=== PATIENT | female | born 1935 | race Caucasian/White ===

== ENCOUNTER → 2020-11-14 | Outpatient (CLI) | payer MEDICARE, OTHER ==
[~2020-11-14] MED LIST: AMLO10 PO; Aspir 8181 MG PO; LEVE500 PO; LISI5 PO; OMEP20ER PO; SENN187 PO; SERT100 PO; VIT1CAPS12 PO; VITAMIN D31000 UNIT PO
[2020-11-14 09:43] LABS: Appearance, Urine Clear (Clear); Bilirubin, Urine Neg (Neg); Blood, Urine Neg (Neg); Color, Urine Yellow (P-Yellow); Glucose Qualitative, Urine Neg (Neg); Ketones, Urine Neg (Neg); Leukocyte Esterase, Urine Neg (Neg); Nitrite, Urine Neg (Neg); Protein, Urine Neg (Neg); Specific Gravity, Urine 1.015 (1.003-1.022); Urobilinogen, Urine NORM (Normal)
== END | disposition home or self-care (01) ==
LOC: LAB 07:05 → LAB SHORT 07:05 → EDSTATUS 11-13 15:50 → LAB FUT 11-13 15:50
PROVIDERS: Internal Medicine
DX: R35.0 Frequency of micturition (principal)
CPT/HCPCS: 81003

== ENCOUNTER 2021-01-11 13:58 | Observation (INO) | payer OTHER, MEDICARE ==
[~2021-01-11] VITALS: Ht 175.3 cm; Wt 86.2 kg
[2021-01-11 14:48] LABS: Source, Urine Catheter
[2021-01-11 14:51] LABS: Bilirubin, Urine Neg (Neg); Blood, Urine 1+ (Neg); Glucose Qualitative, Urine 4+ (Neg); Ketones, Urine Neg (Neg); Leukocyte Esterase, Urine Neg (Neg); Nitrite, Urine Neg (Neg); Protein, Urine 1+ (Neg); Urobilinogen, Urine NORM (Normal)
[2021-01-11 15:02] LABS: Appearance, Urine Clear (Clear); Color, Urine Yellow (P-Yellow)
[2021-01-11 15:03] LABS: Bacteria Rare /hpf; Mucus Light (0-Heavy); Red Blood Cells, Urine 0-2 /hpf (0-2); Squamous Epithelial Cells Rare /hpf (Few); White Blood Cells, Urine 0-2 /hpf (0-5)
[2021-01-11 15:17] LABS: Alanine Aminotransfer (ALT/SGP 38 U/L (12-78); Albumin, Blood 3.9 g/dL (3.4-5.0); Albumin/Globulin Ratio 0.9 (0.8-1.8); Alk Phos 117 U/L (50-136); Anion Gap 6 mmol/L (6-16); Aspartate Aminotrans (AST/SGOT 62 U/L (12-37); Bilirubin, Total 0.9 mg/dL (0.1-1.0); Blood Urea Nitrogen 15 mg/dL (8-24); Bun/Creatinine Ratio 30.7 (12.0-20.0); CO2, Blood 28 mmol/L (21-32); Calcium, Blood 9.3 mg/dL (8.5-10.1); Chloride, Blood 102 mmol/L (98-108); Creatinine, Blood 0.49 mg/dL (0.40-1.00); Globulin, Blood 4.3 g/dL (2.2-4.0); Glomerular Filtration Rate >60 (60-); Glucose, Blood 166 mg/dL (70-99); Magnesium, Blood 2.1 mg/dL (1.6-2.4); Potassium, Blood 3.6 mmol/L (3.5-5.5); Sodium, Blood 136 mmol/L (136-145); Total Protein, Blood 8.2 g/dL (6.4-8.2); Troponin I <0.015 ng/mL (0.000-0.040)
[2021-01-11 15:19] LABS: CPK Creatine Kinase 1552 U/L (26-193)
[2021-01-11 15:27] LABS: BASOPHILS ABSOLUTE AUTO 0.02 K/mm3 (0.00-0.23); BASOPHILS PERCENT AUTO 0 % (0-2); EOSINOPHILS ABSOLUTE AUTO 0.01 K/mm3 (0.00-0.68); EOSINOPHILS PERCENT AUTO 0 % (0-6); Hematocrit 40.1 % (33.0-51.0); Hemoglobin 13.2 g/dL (11.5-16.0); IMMATURE GRAN ABSOLUTE AUTO 0.04 K/mm3 (0.00-0.10); IMMATURE GRAN PERCENT AUTO 0 % (0-1); LYMPHOCYTES ABSOLUTE AUTO 0.62 K/mm3 (0.84-5.20); LYMPHOCYTES PERCENT AUTO 6 % (21-46); MONOCYTES PERCENT AUTO 10 % (4-13); Mean Corpuscular HGB 27.5 pg (26.0-34.0); Mean Corpuscular HGB Conc 32.9 g/dL (31.5-36.5); Mean Corpuscular Volume 84 fL (80-100); Mean Platelet Volume 10.6 fL (9.1-12.4); NEUTROPHILS ABSOLUTE AUTO 8.38 K/mm3 (1.96-9.15); NEUTROPHILS PERCENT AUTO 83 % (41-73); Platelet Count 150 K/mm3 (150-400); RDW Coefficient Variation 13.7 % (11.7-14.2); RDW Standard Deviation 42.1 fL (35.1-46.3); White Blood Cell Count 10.07 K/mm3 (4.00-11.30)
[2021-01-11 15:33] LABS: Creatine Kinase MB 43.3 ng/mL (0.0-3.6)
[2021-01-11 15:34] LABS: Creatine Kinase MB Index 2.8 (0.0-4.0)
[2021-01-11] MEDS ORDERED: Aspir 8181 MG PO (20:57)
[2021-01-11] MEDS ORDERED: VIT1CAPS12 PO (20:57)
[2021-01-11] MEDS ORDERED: AMLO10 PO (20:57)
[2021-01-11] MEDS ORDERED: VITAMIN D31000 UNIT PO (20:57)
[2021-01-11] MEDS ORDERED: SERT100 PO (20:57)
--- NOTE | 2021-01-11 21:55 | NUR ---
REPORT RECEIVED FROM OBED WRIGHT RN. PT TRANSPORTED TO MEDICAL FLOOR VIA GURNEY, SLIDE-TRANSFERRED TO BED WITH ASSIST OF 3. TOLERATED WELL. SON AT THE BEDSIDE TO ASSIST IN PROVIDING PT HX, PT IS A POOR HISTORIAN D/T HX OF DEMENTIA. ORIENTED TO ROOM/UNIT, VS TAKEN, WNL. ATTENDS CHANGED AND PT REPOSITIONED. NO OTHER ACUTE NEEDS ASSESSED AT THIS TIME. CALL LIGHT AND POSSESSIONS IN REACH, BED IN LOW AND LOCKED POSITION WITH ALARMS ON.
[2021-01-12 04:53] LABS: BASOPHILS ABSOLUTE AUTO 0.03 K/mm3 (0.00-0.23); BASOPHILS PERCENT AUTO 0 % (0-2); EOSINOPHILS ABSOLUTE AUTO 0.04 K/mm3 (0.00-0.68); EOSINOPHILS PERCENT AUTO 1 % (0-6); Hematocrit 36.2 % (33.0-51.0); Hemoglobin 11.6 g/dL (11.5-16.0); IMMATURE GRAN ABSOLUTE AUTO 0.02 K/mm3 (0.00-0.10); IMMATURE GRAN PERCENT AUTO 0 % (0-1); LYMPHOCYTES ABSOLUTE AUTO 1.14 K/mm3 (0.84-5.20); LYMPHOCYTES PERCENT AUTO 14 % (21-46); MONOCYTES ABSOLUTE AUTO 0.96 K/mm3 (0.16-1.47); MONOCYTES PERCENT AUTO 12 % (4-13); Mean Corpuscular HGB 27.2 pg (26.0-34.0); Mean Corpuscular Volume 85 fL (80-100); Mean Platelet Volume 10.3 fL (9.1-12.4); NEUTROPHILS ABSOLUTE AUTO 5.83 K/mm3 (1.96-9.15); NEUTROPHILS PERCENT AUTO 73 % (41-73); Platelet Count 158 K/mm3 (150-400); RDW Coefficient Variation 14.1 % (11.7-14.2); RDW Standard Deviation 43.4 fL (35.1-46.3); Red Blood Cell Count 4.26 M/mm3 (3.80-5.20); White Blood Cell Count 8.02 K/mm3 (4.00-11.30)
[2021-01-12 05:15] LABS: Anion Gap 3 mmol/L (6-16); Blood Urea Nitrogen 12 mg/dL (8-24); Bun/Creatinine Ratio 21.2 (12.0-20.0); CO2, Blood 28 mmol/L (21-32); Calcium, Blood 8.5 mg/dL (8.5-10.1); Chloride, Blood 110 mmol/L (98-108); Creatinine, Blood 0.57 mg/dL (0.40-1.00); Glomerular Filtration Rate >60 (60-); Glucose, Blood 155 mg/dL (70-99); Potassium, Blood 3.3 mmol/L (3.5-5.5); Sodium, Blood 141 mmol/L (136-145)
--- NOTE | 2021-01-12 06:12 | NUR ---
INSURANCE ACTUARY SUMMARY PT RESTING IN BED, PICKING AT SHEETS AND GRABBING ONTO SIDERAILS; A&OX1, RE-ORIENTED TO PLACE AND SITUATION, PT STATES SHE HAD NO IDEA SHE WAS IN THE HOSPITAL. HAS HAD NO ACUTE CHANGES IN CONDITION SINCE ADMISSION. SLEPT ON AND OFF. CONFUSED AND FORGETFUL, BUT RE-DIRECTABLE. VS REVIEWED,WNL. MEDICATED X1 FOR PAIN. NO ACUTE NEEDS ASSESSED AT THIS TIME. CALL LIGHT, POSSESSIONS IN REACH, BED IN LOW AND LOCKED POSITION WITH ALARMS ON, SIDERAILS UP X3. WILL CONTINUE TO PROVIDE CARE NEEDED UNTIL REPORT GIVEN TO ONCOMING RN.
[2021-01-12] MEDS ORDERED: OMEP20ER PO (14:21)
--- NOTE | 2021-01-12 17:23 | NUR ---
PT AOX1 AND VERY CONFUSED. PT TALKS MAKING NO SENSE JUMBLING UP DIFFERENT THINGS. NO NOTED DROOP IN FACIAL FEATURES AT THIS TIME AND BOTH SIDES ARE OF EQUAL STRENGTH. PT IS IN CONTENT AND HAS ATTENDS IN PLACE AND BED ALARM IS IN USE PT WILL TRY TO HEAD OUT OF BED WHEN SHE HAS VOIDED IN HER ATTENDS. PT IS CHECKED FREQUENTLY WILL CONTINUE TO MONITOR.
--- NOTE | 2021-01-12 20:01 | NUR ---
TATYANA PLACED AT 2000 PT IS VERY CONFUSED, WEAK, AND HAVING VISUAL HALLUCINATIONS. IMPULSIVE AND TRIES TO GET OUT OF BED MANY TIMES. HSOPITALIST ANGELES NOTIFIED, TATYANA DOMÍNGUEZ ORDERED AND IN PLACE. BED ALARM ON, CALL LIGHT WITHIN REACH, WILL CONTINUE TO MONITOR.
--- NOTE | 2021-01-13 05:01 | NUR ---
BILATERAL SOFT ANKLE RESTRAINTS TRAZADONE DID NOT HELP PT SLEEP. PT STILL AGITATED AND TRYING TO SCOOT OFF THE BED. HOSPITALIST DR. HARTMANN MADE AWARE. BILATERAL SOFT ANKLE RESTRAINTS IN ADDITION TO VEST ORDERED. ANKLE RESTRAINTS APPLIED.
--- NOTE | 2021-01-13 05:03 | NUR ---
[employer] SCOUT SUMMARY PT A/O X1 TO SELF. PT HAS HAD VISUAL HALLUCINATIONS OVERNIGHT AND HAS NOT SLEPT MUCH. TATYANA AND BILATERAL SOFT ANKLE RESTRAINTS IN PLACE. PT AGITATED, POINTING, AND TALKING TO VOICES IN ROOM. INCONTIENT TO BLADDER. ROOM AIR SATTING IN THE MID TO HIGH 80'S. PT HAD NO PAIN. CALL LIGHT WITHIN REACH, BED ALARM ON, WILL CONTINUE TO MONITOR.
[2021-01-13 08:53] LABS: Anion Gap 7 mmol/L (6-16); Blood Urea Nitrogen 10 mg/dL (8-24); CO2, Blood 25 mmol/L (21-32); Calcium, Blood 8.8 mg/dL (8.5-10.1); Chloride, Blood 107 mmol/L (98-108); Glomerular Filtration Rate >60 (60-); Glucose, Blood 163 mg/dL (70-99); Potassium, Blood 3.3 mmol/L (3.5-5.5); Sodium, Blood 139 mmol/L (136-145)
[2021-01-13 09:01] LABS: CPK Creatine Kinase 1197 U/L (26-193)
--- NOTE | 2021-01-13 17:23 | NUR ---
PATIENT A/O X1. EXPERIENCING MORE CONFUSION AND HALLUCINATIONS. DOCTOR HAS BEEN NOTIFIED OF PATIENTS STATUS. BED RAILS UP TO AVOID PATIENT SWINGING LEGS OUT OF BED. BED IN LOWEST POSITION AND CALL LIGHT IN REACH. WILL CONTINUE CARE UNTIL EVENING SHIFT HAND-OFF REPORT.
[2021-01-14 05:21] LABS: Anion Gap 4 mmol/L (6-16); Blood Urea Nitrogen 20 mg/dL (8-24); Bun/Creatinine Ratio 27.4 (12.0-20.0); CO2, Blood 26 mmol/L (21-32); Calcium, Blood 9.3 mg/dL (8.5-10.1); Chloride, Blood 108 mmol/L (98-108); Creatinine, Blood 0.73 mg/dL (0.40-1.00); Glomerular Filtration Rate >60 (60-); Glucose, Blood 152 mg/dL (70-99); Potassium, Blood 3.7 mmol/L (3.5-5.5); Sodium, Blood 138 mmol/L (136-145)
--- NOTE | 2021-01-14 13:44 | NUR ---
[facility] CASE CONFERENCES & FAMILY CONFERENCE - Pt was asleep when I attempted to visit several times this am. RN states this is the first good sleep pt has had since admission and was awake most of the night last night and the night before so I did not wake her. Family conference arranged and held outside of pt's room with Lorena-Dulce Maria, Son-Ronny and CM-Ping. Pt is 85 years old and until February of last year lived in [facility] in her home. Children [place] [facility] [place] [facility] [place] due to her growing s/s of dementia and need for more frequent visits/assist. Pt has recently had some falls and has been found on the floor of her apartment twice when Son arrived for a visit. The first time, he was able to get pt on her feet and mentation was at baseline. This time pt had a notable change in mentation and appeared to have been down for a longer period, with possible injury due to the fall. Son brought pt to ER for eval and she was admitted under observation status. The anticipated progression of dementia and anticipated decline in mentation, appetite and overall physical/cognitive function discussed. Options for care discussed in detail with pt's children, who are trying to decide on best living/care situation now. CM provided list of [facility], [facility], memory care and a cg registry list also. We reviewed pros/cons of all of those options and some local facilities. Son also raised the possibility of caring for their mom in their home as they had done that for their dad when he was at EOL and on hospice. Son felt they could manage that if it was for a short duration. I have not fully assessed pt but have reviewed all of EMR. I do not feel pt would meet criteria for hospice services/support at this time. If she cont to decline meals and show disinterest in food and has minimal PO intake that assessment could mold changer the next weeks to months. I shared that with pt's children. I cannot say that home care would be of a short duration as pt may continue on in current state for months, especially with more supportive care, social interaction and 1:1 encouragment at meal time that she has not had, other than nearly daily "pop in" visits from children and LO staff. At this time, plan is for pt's daughter to research some of the available facilities and also to discuss, as a family, best plan. SNF also discussed and results of PT eval shared with recommendation of memory care with HH PT/OT as well as reasons why Margie may not meet criteria for SNF due to mentation, inability to follow thru and progress. Pt's children verbalized understanding. Time spent listening and helping them sound out solutions.
[2021-01-14 16:43] LABS: BASOPHILS ABSOLUTE AUTO 0.06 K/mm3 (0.00-0.23); BASOPHILS PERCENT AUTO 1 % (0-2); EOSINOPHILS ABSOLUTE AUTO 0.32 K/mm3 (0.00-0.68); EOSINOPHILS PERCENT AUTO 5 % (0-6); Hematocrit 39.7 % (33.0-51.0); Hemoglobin 13.1 g/dL (11.5-16.0); IMMATURE GRAN ABSOLUTE AUTO 0.03 K/mm3 (0.00-0.10); IMMATURE GRAN PERCENT AUTO 0 % (0-1); LYMPHOCYTES ABSOLUTE AUTO 1.88 K/mm3 (0.84-5.20); LYMPHOCYTES PERCENT AUTO 27 % (21-46); MONOCYTES ABSOLUTE AUTO 0.99 K/mm3 (0.16-1.47); MONOCYTES PERCENT AUTO 14 % (4-13); Mean Corpuscular HGB 27.6 pg (26.0-34.0); Mean Corpuscular Volume 84 fL (80-100); Mean Platelet Volume 10.4 fL (9.1-12.4); NEUTROPHILS ABSOLUTE AUTO 3.82 K/mm3 (1.96-9.15); NEUTROPHILS PERCENT AUTO 54 % (41-73); Platelet Count 216 K/mm3 (150-400); RDW Coefficient Variation 14.1 % (11.7-14.2); RDW Standard Deviation 42.8 fL (35.1-46.3); Red Blood Cell Count 4.74 M/mm3 (3.80-5.20)
--- NOTE | 2021-01-14 16:50 | NUR ---
Responded to EDGAR REBOLLEDO called this afternoon. Pt roused before CPR started. Son arrived and stated he believed his mom was a DNR. We reviewed her AD. Ronny and his sister, Dulce Maria, are alternate decision makers but there was no indication in advanced directive of pt's choices other than "as my physician recommends" and that her surrogate decision makers may decide on life sustaining measures. Pt's son, carter and I discussed benefit vs burden in multiple aspects and end decision was to make pt a DNR with no other changes to goals of treating acute illness and s/s. This was communicated to rapid response team, Drs and bedside RN. VO obtained and entered. I stayed with pt and her children for approx 90 minutes to assist with s/s management and answering questions as staff prepared for transfer to CT for CT of her abd. Pt had slumped over in her chair after PT session and was c/o nausea and severe waves of pressure and feeling she needed to pass stool or gas. Coached pt with deep breathing when she began to hyperventilate. Cold cloth to forehead for nausea and warm blanket to abdomen. Pt taking big deep breaths and repeating, here it comes again as if she is having spasmodic waves of cramping and discomfort. She is fearful of stool being everywhere and she was encouraged to not hold back if gas or stool being released. Pt is communicating clearly with staff and her children, which is a big improvement from yesterday and day, despite her obvious discomfort. She is very pale and labored with her nausea/abd pain. Dulce Maria Carrillo, had been to [facility] and liked facility and staff. They have a one bedrooom delux room available and were available tomorrow to evaluate Margie for acceptance into their facility. This was passed on to Dr Beal, who relayed info to lAex. I contacted [facility] to notify and ask that they allow [facility] staff to come in when they arrive tomorrow to evaluate pt. Planned with pt's children to meet again in am and review current status and plan of care.
[2021-01-14 17:24] LABS: Alanine Aminotransfer (ALT/SGP 58 U/L (12-78); Albumin, Blood 3.5 g/dL (3.4-5.0); Albumin/Globulin Ratio 0.9 (0.8-1.8); Alk Phos 90 U/L (50-136); Anion Gap 9 mmol/L (6-16); Aspartate Aminotrans (AST/SGOT 66 U/L (12-37); Bilirubin, Total 0.5 mg/dL (0.1-1.0); Blood Urea Nitrogen 30 mg/dL (8-24); Bun/Creatinine Ratio 30.5 (12.0-20.0); CO2, Blood 22 mmol/L (21-32); Calcium, Blood 10.3 mg/dL (8.5-10.1); Chloride, Blood 107 mmol/L (98-108); Creatinine, Blood 0.98 mg/dL (0.40-1.00); Globulin, Blood 4.1 g/dL (2.2-4.0); Glomerular Filtration Rate 54 (60-); Glucose, Blood 167 mg/dL (70-99); Potassium, Blood 3.7 mmol/L (3.5-5.5); Prolactin 203.6 ng/mL (2.74-19.64); Sodium, Blood 138 mmol/L (136-145); Total Protein, Blood 7.6 g/dL (6.4-8.2); Troponin I <0.015 ng/mL (0.000-0.040)
--- NOTE | 2021-01-14 17:24 | NUR ---
PT STARTED SHIFT OUT SLEEPING A LOT. BY 1000 PT WOKE UP AND WAS MUCH MORE ALERT. PT WAS ABLE TO CARRY ON SIMPLE CONVERSATIONS AND ABLE TO WORK WITH PHYSICAL THERAPY. PHYSICAL THERAPY SAT PT UP IN CHAIR WITH ALARM. PT REQUESTED NEEDING TO USE COMMODE AID AND THIS SENIOR NATIONAL ACCOUNT MANAGER ATTEMPTED TO HELP PT SUDDENLY STARTED TO HAVE LEGS SHAKE. PT THEN SUDDENLY WENT UNRESPOSIVE NO BREATHING CODE CALLED PT MOVED TO BED. PLEASE REFER TO POLLS OR SURVEYS INTERVIEWER NOTE IN CHART. PT HAD BOLUS PER EMAR AND NAUSEA MEDICATION DUE TO EMESIS. FAMILY AT BEDSIDE. PT TAKEN FOR CT WILL CONTINUE TO MONITOR CLOSELY.
--- NOTE | 2021-01-15 04:16 | NUR ---
SHIFT SUMMARY ADMITTED FOR A FALL. DNR CODE. TODAY A CODE BLUE WAS CALLED IT WAS OBSERVED HER BREATHING STOPPED. SHE IS ALERT FOR ME THIS SHIFT, SHE IS ABLE TO MAKE HER NEEDS KNOWN. ON PREVIOUS SHIFTS SHE HAS BEEN CONFUSED. A SUPPOSITORY GIVEN AT SHIFT CHANGE FOR CONSTIPATION WAS SUCCESSFUL. SHE HAS HAD TWO EXTRA LARGE BOWEL MOVEMENTS. SHE STATES THAT HER STOMACH FEELS BETTER NOW. TELEMETRY: NSR W/PVC'S @ 85 BPM. NS INFUSING @ 100 ML/HR. FAMILY IS WORKING WITH CARE MANAGEMENT ON POSSIBLE DC TO A FACILITY. I AM UNABLE TO CALL NEURO CONSULT THERE IS NO CONSULT AVAILABLE UNTIL 01/18.
[2021-01-15 08:34] LABS: Anion Gap 8 mmol/L (6-16); Blood Urea Nitrogen 25 mg/dL (8-24); Bun/Creatinine Ratio 36.4 (12.0-20.0); CO2, Blood 24 mmol/L (21-32); Calcium, Blood 8.7 mg/dL (8.5-10.1); Chloride, Blood 108 mmol/L (98-108); Creatinine, Blood 0.69 mg/dL (0.40-1.00); Glomerular Filtration Rate >60 (60-); Glucose, Blood 203 mg/dL (70-99); Potassium, Blood 3.9 mmol/L (3.5-5.5); Sodium, Blood 140 mmol/L (136-145)
--- NOTE | 2021-01-15 10:15 | NUR ---
Pal Care visit at end of Dr Jackson' visit. Son at bedside. CT of abd showed severe constipation. Pt remains NPO. Son and RN finding out if pt can eat or if additional testing planned that would require NPO. Confirmed with screener that [facility] staff may come in this am to eval. Pt awake, alert and appears much more comfortable than yesterday afternoon and evening.
[2021-01-15 11:09] LABS: Creatine Kinase MB 3.5 ng/mL (0.0-3.6); Creatine Kinase MB Index 1.2 (0.0-4.0)
--- NOTE | 2021-01-15 17:27 | NUR ---
PT IS ALERT, ORIENTED TO SELF AND FAMILY, THE PT DENIED ANY ABD PAIN OR ANY OTHER PAIN TODAY, THE PT WAS UP TO THE BSC WITH 1-2 PERSON ASSIST, THE PT HAD SEVERAL MUCOUSY BLOOD TINGED BM'S TODAY, THE PT APPEARS TO BE BREATHING EASILY ON RA AT THIS TIME, THE PTS WAS STARTED ON SOFT DIET TODAY AND ATE SMALL BITES ONLY, CALL LIGHT IN REACH FAMILY IS AT THE BEDSIDE
--- NOTE | 2021-01-15 18:55 | NUR ---
Spiritual care note: Mrs. Nunez appeared to be pleasantly confused when I met with her this morning. She was working on her breakfast, said she was not hungry, but continued eating. She allowed me to pray for her. She knows that she is hospitalized b/c she fell, but appears unaware of events of yesterday. I will remain available to pt and family.
[2021-01-16 08:19] LABS: Anion Gap 6 mmol/L (6-16); Blood Urea Nitrogen 17 mg/dL (8-24); Bun/Creatinine Ratio 26.9 (12.0-20.0); CO2, Blood 27 mmol/L (21-32); Calcium, Blood 8.8 mg/dL (8.5-10.1); Chloride, Blood 105 mmol/L (98-108); Creatinine, Blood 0.63 mg/dL (0.40-1.00); Glomerular Filtration Rate >60 (60-); Glucose, Blood 168 mg/dL (70-99); Potassium, Blood 3.8 mmol/L (3.5-5.5); Sodium, Blood 138 mmol/L (136-145)
--- NOTE | 2021-01-16 12:30 | NUR ---
Brief Pal Care visit. Pt sitting up in bed after breakfast. She states she is doing "ok" when asked but does not seem certain about this. RN states she is feeling tired and wanting to go back to bed. Pt demonstrating nonverbal indicators of discomfort or restlessness but not pain and denies pain. EMR and MRI results reviewed prior to my visit. RN was in the process of administering PO medications. Pt looks brighter in mentation and energy than on previous two days that I have visited. Family working with CM on d/c plan to a memory care facility. I will sign off for now but return if indicated.
--- NOTE | 2021-01-16 17:51 | NUR ---
PT IS ALERT ORIENTED TO SELF, FAMILY AND FOLLOWING DIRECTIONS, THE PT APPEARS TO BE BREATHING EASILY ON RA AT THIS TIME, THE PT DENIED ANY PAIN, HOWEVER, RUBBED HER STOMACH AND SAID THAT IT "JUST DID NOT FEEL RIGHT" THE PT HAS BEEN PASSING SMALL AMOUNTS OF MUCOUSY BLOOD TINGED STOOL. BOTH DR. JUARES AND ARE AWARE. THE PT WAS UP TO THE CHAIR FOR ALL MEALS. AND WALKED I N HER ROOM WITH BOTH THE PHYSICAL AND OCCUPATIONAL THERAPIST TODAY. THE PTS DAUGHTER WAS IN THIS AFTERNOON TO VISIT. BED ALARM AND CHAIR ALRM IN USE TODAY, CALL LIGHT IN REACH, WILL CONTINUE TO MONITOR AND ASSESS FOR CHANGES
--- NOTE | 2021-01-17 04:30 | NUR ---
SHIFT SUMMARY ADMITTED FOR A FALL. DNR CODE. PLAN IS FOR PLACEMENT W/HH. SHE IS CONFUSED. DYSPHAGIA PRECAUTIONS. SHE IS CONTINENT/INCONTINENT, ATTENDS IN PLACE. [facility] CONSULTED. SHE IS A 2 ASSIST TO BSC. SHE WAS PREVIOUSLY AT [facility]. SHE CAN BE IMPULSIVE AT TIMES IN HER CONFUSION.
[2021-01-17 07:35] LABS: Anion Gap 6 mmol/L (6-16); Blood Urea Nitrogen 12 mg/dL (8-24); Bun/Creatinine Ratio 21.8 (12.0-20.0); CO2, Blood 26 mmol/L (21-32); Calcium, Blood 8.7 mg/dL (8.5-10.1); Chloride, Blood 109 mmol/L (98-108); Creatinine, Blood 0.55 mg/dL (0.40-1.00); Glomerular Filtration Rate >60 (60-); Glucose, Blood 159 mg/dL (70-99); Potassium, Blood 3.7 mmol/L (3.5-5.5); Sodium, Blood 141 mmol/L (136-145)
--- NOTE | 2021-01-17 18:09 | NUR ---
SHIFT SUMMARY PT AAO TO SELF AND FAMILY, PLEASANTLY CONFUSED, REDIRECTABLE. PLEASANT AND COOPERATIVE TO CARE. NO C/O PAIN OR ANY DISCOMFORT THIS SHIFT. PT 1-2P ASSIST W/ FWW TO BSC. NO C/O DYSURIA. [facility] EVALUATED PATIENT THIS SHIFT FOR PLACEMENT. NO ACUTE CHANGES NOTED TO PT THIS SHIFT. BED AT LOWEST POSITION, ALARM ON FOR SAFETY. CALL LIGHT WITHIN REACH.
--- NOTE | 2021-01-18 05:22 | NUR ---
SHIFT SUMMARY NO ACUTE CHANGES THIS SHIFT. PT CONFUSED AND ALERT ONLY TO SELF AND FAMILY. PT CAN ALSO BE IMPULSIVE AND TRY TO GET OUT OF BED ON HER OWN. HOWEVER, SHE IS PLEASANT AND EASILY REDIRECTABLE. SHE HAS BEEN SLEEPING COMFORTABLY FOR THE MAJORITY OF THE SHIFT. VSS. WILL POSSIBLY DC TOMORROW TO [facility]. CURRENTLY RESTING IN BED WITH HER CALL LIGHT IN REACH.
--- NOTE | 2021-01-18 16:59 | NUR ---
SHIFT SUMMARY NO ACUTE CHANGES NOTED TO PT THIS SHIFT. PT AAO TO SELF AND FAMILY. PLEASANTLY CONFUSED, REDIRECTABLE, IRRITABLE AT TIMES. NO C/O PAIN OR ANY DISCOMFORT THIS SHIFT. REQUIERS 1P ASSIST FWW TO BSC OR CHAIR. PT CONTINUES TO HAVE A POOR APPETITE. AWAITING PLACEMENT. BED AT LOWEST POSITION. CALL LIGHT WITHIN REACH.
--- NOTE | 2021-01-19 07:05 | NUR ---
SHIFT SUMMARY NO ACUTE CHANGES THIS SHIFT. PT RESTING COMFORTABLY IN BED WITH HER CALL LIGHT IN REACH. SHE IS PLEASANTLY CONFUSED BUT EASILY REDIRECTABLE. POSSIBLE DC HOME WITH DAUGHTER TODAY. SHE HAS A BED AT [facility] COME THURSDAY SO SHE WILL STAY WITH HER DAUGHTER UNTIL THEN. MEDS CRUSHED IN APPLESAUCE/PUDDING. VSS.
[2021-01-19] MEDS ORDERED: LISI5 PO (14:33)
[2021-01-19] MEDS ORDERED: LEVE500 PO (14:33)
[2021-01-19] MEDS ORDERED: SENN187 PO (14:37)
--- NOTE | 2021-01-19 15:32 | NUR ---
PT DISCHARGED TODAY AT 1505 W/C ESCORT OUT TO CAR- GOING HOME WITH DAUGHTER. PT AND DAUGHTER RECEIVED DC INSTRUCTION AND RX FAXED TO [facility]. NO IV PRESENT. AWARE TO FOLLOW UP WITH PCP AND POSSIBLY NEURO REGAURDING TRESA RICKS. SENT HOME WITH BELONGINGS.
== END 2021-01-19 15:07 | disposition home health service (06) ==
LOC: ER 13:58 → MEDS 13:59
PROVIDERS: Family Medicine; Student in an Organized Health Care Education/Training Program; ADMIT Internal Medicine
DX: F03.90 Unspecified dementia, unspecified severity, without behavioral disturbance, psychotic disturbance, mood disturbance, and anxiety (principal); R74.8 Abnormal levels of other serum enzymes; R06.81 Apnea, not elsewhere classified; R11.10 Vomiting, unspecified; K56.41 Fecal impaction; M62.82 Rhabdomyolysis; I10 Essential (primary) hypertension; E87.6 Hypokalemia; F32.9 Major depressive disorder, single episode, unspecified; K21.9 Gastro-esophageal reflux disease without esophagitis; Z91.81 History of falling; Z66 Do not resuscitate; Z79.82 Long term (current) use of aspirin
CPT/HCPCS: 36415; 70450; 70553; 71045; 74177; 80048; 80053; 81001; 82550; 82553; 82947; 83735; 83880; 84146; 84484; 85025; 93005; 93010; 95819; 97110; 97116; 97161; 97166; 97530; 97535; 99285-25; A9270; A9579; G0378; J1650; J2405; J7030; P9612; Q9967

== ENCOUNTER → 2021-02-22 | Outpatient (CLI) | payer MEDICARE, OTHER | END | disposition home or self-care (01) | LOC: LAB SHORT 17:45 → LAB 17:45 | DX: R30.0 Dysuria (principal) | CPT/HCPCS: 87086 ==

== ENCOUNTER → 2021-02-26 | Outpatient (CLI) | payer MEDICARE, OTHER | LOC: LAB 08:30 → LAB SHORT 08:30 | DX: R30.0 Dysuria (principal) | CPT/HCPCS: 87086 ==

== ENCOUNTER 2021-06-13 11:28 | Emergency (ER) | payer MEDICARE, OTHER ==
[~2021-06-13] VITALS: Ht 162.6 cm; Wt 77.1 kg
[2021-06-13 12:09] LABS: BASOPHILS ABSOLUTE AUTO 0.05 K/mm3 (0.00-0.23); BASOPHILS PERCENT AUTO 1 % (0-2); EOSINOPHILS ABSOLUTE AUTO 0.24 K/mm3 (0.00-0.68); EOSINOPHILS PERCENT AUTO 4 % (0-6); Hemoglobin 10.8 g/dL (11.5-16.0); IMMATURE GRAN ABSOLUTE AUTO 0.02 K/mm3 (0.00-0.10); IMMATURE GRAN PERCENT AUTO 0 % (0-1); LYMPHOCYTES ABSOLUTE AUTO 1.13 K/mm3 (0.84-5.20); LYMPHOCYTES PERCENT AUTO 21 % (21-46); MONOCYTES ABSOLUTE AUTO 0.55 K/mm3 (0.16-1.47); MONOCYTES PERCENT AUTO 10 % (4-13); Mean Corpuscular HGB 27.3 pg (26.0-34.0); Mean Corpuscular HGB Conc 31.8 g/dL (31.5-36.5); Mean Corpuscular Volume 86 fL (80-100); Mean Platelet Volume 10.5 fL (9.1-12.4); NEUTROPHILS ABSOLUTE AUTO 3.42 K/mm3 (1.96-9.15); NEUTROPHILS PERCENT AUTO 63 % (41-73); Platelet Count 140 K/mm3 (150-400); RDW Standard Deviation 43.5 fL (35.1-46.3); Red Blood Cell Count 3.96 M/mm3 (3.80-5.20); White Blood Cell Count 5.41 K/mm3 (4.00-11.30)
[2021-06-13 12:44] LABS: Alanine Aminotransfer (ALT/SGP 20 U/L (12-78); Albumin, Blood 3.2 g/dL (3.4-5.0); Albumin/Globulin Ratio 0.8 (0.8-1.8); Alk Phos 88 U/L (50-136); Anion Gap 5 mmol/L (6-16); Aspartate Aminotrans (AST/SGOT 21 U/L (12-37); Bilirubin, Total 0.5 mg/dL (0.1-1.0); Blood Urea Nitrogen 15 mg/dL (8-24); Bun/Creatinine Ratio 20.2 (12.0-20.0); CO2, Blood 28 mmol/L (21-32); Calcium, Blood 8.7 mg/dL (8.5-10.1); Chloride, Blood 108 mmol/L (98-108); Creatinine, Blood 0.74 mg/dL (0.40-1.00); Globulin, Blood 3.8 g/dL (2.2-4.0); Glomerular Filtration Rate >60 (60-); Glucose, Blood 148 mg/dL (70-99); Potassium, Blood 3.2 mmol/L (3.5-5.5); Sodium, Blood 141 mmol/L (136-145); Troponin I <0.015 ng/mL (0.000-0.040)
[2021-06-13 14:43] LABS: Source, Urine Catheter
[2021-06-13 14:53] LABS: Appearance, Urine Clear (Clear); Bilirubin, Urine Neg (Neg); Blood, Urine 2+ (Neg); Color, Urine Yellow (P-Yellow); Glucose Qualitative, Urine Neg (Neg); Ketones, Urine Neg (Neg); Leukocyte Esterase, Urine 1+ (Neg); Nitrite, Urine Neg (Neg); Protein, Urine Neg (Neg); Urobilinogen, Urine NORM (Normal)
[2021-06-13 15:06] LABS: Bacteria Few /hpf; Red Blood Cells, Urine 0-2 /hpf (0-2); Squamous Epithelial Cells Few /hpf (Few); White Blood Cells, Urine 0-2 /hpf (0-5)
== END 2021-06-13 15:33 | disposition home or self-care (01) ==
LOC: ER 11:28
PROVIDERS: Physician Assistant
DX: R11.2 Nausea with vomiting, unspecified (principal); I10 Essential (primary) hypertension; Z79.82 Long term (current) use of aspirin; Z79.899 Other long term (current) drug therapy; F03.90 Unspecified dementia, unspecified severity, without behavioral disturbance, psychotic disturbance, mood disturbance, and anxiety
CPT/HCPCS: 36415; 74022; 80053; 81001; 83690; 84484; 85025; 87086; 93005; 93010; 96374; 99284-25; J2405; J7030

== ENCOUNTER 2021-10-22 19:53 | Emergency (ER) | payer MEDICARE, OTHER ==
[~2021-10-22] VITALS: Ht 162.6 cm; Wt 68.0 kg
[2021-10-22 21:48] LABS: Source, Urine Straight Cath
[2021-10-22 21:54] LABS: BASOPHILS ABSOLUTE AUTO 0.04 K/mm3 (0.00-0.23); BASOPHILS PERCENT AUTO 0 % (0-2); EOSINOPHILS ABSOLUTE AUTO 0.06 K/mm3 (0.00-0.68); EOSINOPHILS PERCENT AUTO 1 % (0-6); Hematocrit 37.6 % (33.0-51.0); Hemoglobin 12.4 g/dL (11.5-16.0); IMMATURE GRAN ABSOLUTE AUTO 0.05 K/mm3 (0.00-0.10); IMMATURE GRAN PERCENT AUTO 1 % (0-1); LYMPHOCYTES ABSOLUTE AUTO 0.62 K/mm3 (0.84-5.20); LYMPHOCYTES PERCENT AUTO 6 % (21-46); MONOCYTES ABSOLUTE AUTO 0.78 K/mm3 (0.16-1.47); MONOCYTES PERCENT AUTO 7 % (4-13); Mean Corpuscular HGB 29.2 pg (26.0-34.0); Mean Corpuscular Volume 89 fL (80-100); Mean Platelet Volume 10.2 fL (9.1-12.4); NEUTROPHILS ABSOLUTE AUTO 9.13 K/mm3 (1.96-9.15); NEUTROPHILS PERCENT AUTO 85 % (41-73); Platelet Count 117 K/mm3 (150-400); RDW Coefficient Variation 14.9 % (11.7-14.2); RDW Standard Deviation 48.4 fL (35.1-46.3); Red Blood Cell Count 4.24 M/mm3 (3.80-5.20); White Blood Cell Count 10.68 K/mm3 (4.00-11.30)
[2021-10-22 22:01] LABS: Appearance, Urine Clear (Clear); Bilirubin, Urine Neg (Neg); Blood, Urine Neg (Neg); Color, Urine Yellow (P-Yellow); Glucose Qualitative, Urine 3+ (Neg); Ketones, Urine 1+ (Neg); Leukocyte Esterase, Urine Neg (Neg); Nitrite, Urine Neg (Neg); Protein, Urine 1+ (Neg); Specific Gravity, Urine 1.025 (1.003-1.022); Urobilinogen, Urine NORM (Normal)
[2021-10-22 22:21] LABS: Alanine Aminotransfer (ALT/SGP 35 U/L (12-78); Albumin, Blood 3.5 g/dL (3.4-5.0); Albumin/Globulin Ratio 0.9 (0.8-1.8); Alk Phos 99 U/L (50-136); Anion Gap 5 mmol/L (6-16); Aspartate Aminotrans (AST/SGOT 29 U/L (12-37); Bilirubin, Total 0.4 mg/dL (0.1-1.0); Blood Urea Nitrogen 17 mg/dL (8-24); Bun/Creatinine Ratio 27.5 (12.0-20.0); CO2, Blood 28 mmol/L (21-32); CPK Creatine Kinase 181 U/L (26-193); Calcium, Blood 9.3 mg/dL (8.5-10.1); Chloride, Blood 106 mmol/L (98-108); Creatine Kinase MB 8.6 ng/mL (0.0-3.6); Creatine Kinase MB Index 4.8 (0.0-4.0); Creatinine, Blood 0.62 mg/dL (0.40-1.00); Globulin, Blood 3.8 g/dL (2.2-4.0); Glomerular Filtration Rate >60 (60-); Glucose, Blood 239 mg/dL (70-99); Magnesium, Blood 1.9 mg/dL (1.6-2.4); Potassium, Blood 3.9 mmol/L (3.5-5.5); Sodium, Blood 139 mmol/L (136-145); Total Protein, Blood 7.3 g/dL (6.4-8.2)
[2021-10-22 22:22] LABS: Bacteria Mod /hpf; Calcium Oxalate Crystals Few /hpf; Red Blood Cells, Urine Not Seen /hpf (0-2); Squamous Epithelial Cells Few /hpf (Few)
[2021-10-22 22:33] LABS: Influenza A, PCR NEGATIVE (NEGATIVE); Influenza B, PCR NEGATIVE (NEGATIVE); Resp Syncytial Virus, PCR NEGATIVE (NEGATIVE); SARS-Cov-2 (COVID-19) PCR, MMC NEGATIVE (NEGATIVE)
[2021-10-23] MEDS ORDERED: CEPH500 PO (00:08)
== END 2021-10-23 06:00 | disposition home or self-care (01) ==
LOC: ER 19:53
PROVIDERS: Emergency Medicine
DX: S06.5X9A Traumatic subdural hemorrhage with loss of consciousness of unspecified duration, initial encounter (principal); N39.0 Urinary tract infection, site not specified; I10 Essential (primary) hypertension; E11.9 Type 2 diabetes mellitus without complications; Z79.899 Other long term (current) drug therapy; W19.XXXA Unspecified fall, initial encounter
CPT/HCPCS: 0241U; 70450; 80053; 81001; 82550; 82553; 83605; 83735; 84484; 85025; 87086; 93005; 93010; 99284-25; A9270

== ENCOUNTER 2021-10-29 15:13 | Emergency (ER) | payer MEDICARE, OTHER ==
[~2021-10-29] VITALS: Ht 167.6 cm; Wt 65.8 kg
[~2021-10-29 15:13] MED LIST changes: +CEPH500 PO
== END 2021-10-29 17:16 | disposition home or self-care (01) ==
LOC: ER 15:13
DX: M54.50 Low back pain, unspecified (principal); E11.9 Type 2 diabetes mellitus without complications; I10 Essential (primary) hypertension; F32.A Depression, unspecified; F03.90 Unspecified dementia, unspecified severity, without behavioral disturbance, psychotic disturbance, mood disturbance, and anxiety; Z79.82 Long term (current) use of aspirin; Z79.899 Other long term (current) drug therapy; Z88.5 Allergy status to narcotic agent; W18.30XA Fall on same level, unspecified, initial encounter; Y92.9 Unspecified place or not applicable; Z91.81 History of falling
CPT/HCPCS: 72100; 73502

== ENCOUNTER → 2021-11-19 | Outpatient (CLI) | payer MEDICARE, OTHER | END | disposition home or self-care (01) | LOC: LAB SHORT 13:31 → LAB 13:31 | DX: N39.0 Urinary tract infection, site not specified (principal) | CPT/HCPCS: 87086 ==